=== PATIENT | female | born 1980 | race Hispanic/Latino ===

== ENCOUNTER → 2022-07-11 | Outpatient (CLI) | payer OTHER | LOC: MAMMO 10:17 | PROVIDERS: ATTEND Internal Medicine | DX: Z12.31 Encounter for screening mammogram for malignant neoplasm of breast (principal) | CPT/HCPCS: 77067 ==

== ENCOUNTER → 2022-07-20 | Outpatient (CLI) | payer OTHER | LOC: MAMMO 13:25 | PROVIDERS: ATTEND Internal Medicine | DX: N64.9 Disorder of breast, unspecified (principal) ==